=== PATIENT | female | born 2000 | race Caucasian/White ===

== ENCOUNTER 2018-11-01 18:52 | Emergency (ER) | payer OTHER, SELFPAY ==
[2018-11-01 19:00] VITALS: BP 117/76; PULSE 103; RESP 14; TEMP 36.8; O2SAT 100; BMI 25.0
[2018-11-01 19:38] LABS: Urine Amphetamines Negative (Negative); Urine Barbiturates Negative (Negative); Urine Benzodiazepines Negative (Negative); Urine Cocaine Negative (Negative); Urine MDMA Negative (Negative); Urine Methadone Negative (Negative); Urine Methamphetamines Negative (Negative); Urine Morphine/Opi cutoff 2000 Negative (Negative); Urine Oxycodone Negative (Negative); Urine Phencyclidine Negative (Negative); Urine Tetrahydrocannabinol Negative (Negative); Urine Tricyclic Antidepressant Negative (Negative)
[2018-11-01 19:47] LABS: Add Manual Diff / Slide Review NO; Basophils Absolute Auto 0 /uL (0-100); Basophils Percent Auto 0.5 % (0-2); Eosinophils Absolute Auto 200 /uL (0-450); Eosinophils Percent Auto 2.6 % (2-4); Hematocrit 39.4 % (36-46); Hemoglobin 13.7 g/dL (12.0-16.0); Lymphocytes Absolute Auto 2200 /uL (1100-4500); Lymphocytes Percent Auto 26.4 % (25-40); Mean Corpuscular HGB Conc 34.9 % (30-36); Mean Corpuscular Hemoglobin 31.1 PG (26-34); Mean Corpuscular Volume 89.2 fL (80-100); Monocytes Absolute Auto 800 /uL (0-900); Monocytes Percent Auto 9.7 % (3-14); Neutrophils Absolute Auto 5100 /uL (1500-7000); Neutrophils Percent Auto 60.8 % (50-75); Platelet Count 266 X10^3/uL (150-400); Red Blood Cell Count 4.41 X10^6/uL (4.0-5.2); Red Cell Distribution Width 12.7 % (11.6-14.8); White Blood Cell Count 8.4 X10^3/uL (4.5-11.0)
[2018-11-01] MEDS: LORazepam 0.5 MG TABLET 1 MG PO ×2 (19:49→22:52)
[2018-11-01 20:03] LABS: Alanine Aminotransferase 11 IU/L (9-52); Albumin 4.6 g/dL (3.5-5.0); Albumin Globulin Ratio 1.5 (1.0-2.8); Alkaline Phosphatase 53 U/L (38-126); Aspartate Aminotransferase 19 IU/L (14-36); Bilirubin Total 0.2 mg/dL (0.2-1.3); Blood Urea Nitrogen 16 mg/dL (7-17); Calcium 9.3 mg/dL (8.4-10.2); Carbon Dioxide 26 mmol/L (22-32); Chloride 105 mmol/L (98-107); Estimated Glomerular Filt Rate > 60.0 mL/min (>60); Ethanol (ETOH) < 10 mg/dL; Globulin 3.1 g/dL (1.7-4.1); Glucose 94 mg/dL (70-100); HEMOLYSIS < 15 (0-50); Potassium 3.9 mmol/L (3.4-5.1); Sodium 142 mmol/L (137-145); Total Protein 7.7 g/dL (6.3-8.2)
[2018-11-01 20:21] VITALS: BP 120/74; PULSE 84; RESP 16; O2SAT 97
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
[2018-11-01 20:58] LABS: Thyroid Stimulating Hormone 2.43 uIU/mL (0.47-4.68)
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
[2018-11-01 21:21] LABS: Acetaminophen < 10 ug/mL (10-30); Salicylate < 1.0 mg/dL (<20)
[2018-11-01 22:11] VITALS: BP 111/76; PULSE 100; RESP 16; TEMP 36.3; O2SAT 98
== END 2018-11-01 22:55 | disposition short-term general hospital (02) ==
PROVIDERS: Emergency Provider Emergency Medicine
DX: R45.851 Suicidal ideations (principal)
CPT/HCPCS: 36415; 80053; 80305; 80320; 80329; 81003; 81025; 84443; 85025; 99283; G0480

== ENCOUNTER 2022-03-26 23:00 | Emergency (ER) | payer OTHER, SELFPAY ==
[2022-03-26 23:04] VITALS: BP 104/61; PULSE 93; RESP 20; TEMP 36.6; O2SAT 100; BMI 29.9
--- NOTE | 2022-03-26 23:13 | DI.RAD.S_ITS ---
PROCEDURE: XR WRIST RT MIN 3V INDICATIONS: fall, wrist injury, wrist pain TECHNIQUE: 4 views of the wrist were acquired. COMPARISON: None. FINDINGS: Bones: No fractures or dislocations. No suspicious bony lesions. Scaphoid view: The scaphoid appears intact. Soft tissues: No suspicious soft tissue calcifications. IMPRESSION: 1. No fracture or dislocation. Dictated by: Nima To M.D. on 03/27/2022 at 0:44 Approved by: Nima To M.D. on 03/27/2022 at 0:45
[2022-03-27 02:30] VITALS: BP 116/73; PULSE 85; RESP 18
--- NOTE | 2022-03-27 03:35 | ED.UPPEXIN ---
HPI - Extremity Injury (Upper) General Chief Complaint: Extremity Injury, Upper Stated Complaint: nick josue in right wrist Time Seen by Provider: 03/27/22 03:30 Source: patient Mode of arrival: Ambulatory Limitations: no limitations History of Present Illness HPI narrative: This is a 21-year-old female with complaint of pain in her right hand/wrist. Patient states she is playing with her dog she did fall over a couple time she did not notice anything but afterwards had some pain in the wrist 4th 5th metacarpal region. Patient states she twisted her hand felt a click and had persistent pain. Particularly with flexion. Patient states she felt something similar when she was 8 she had an injury and had a ligamentous injury. She states she wore a splint, took Tylenol and ibuprofen and it healed on its own without interventions otherwise. Patient denies any other injuries. She is not taken anything for pain. She states maybe a little bit of tingling but no weakness. She has not appreciated decreased range of motion but does have pain with some movements. She is not sure if she fell down but she thinks she might have she was playing with 2 large dogs for quite a while. Patient denies any daily medications, no prior surgeries. No known drug allergies. She defers anything for pain today. [facility] care is through [facility]. Related Data Home Medications Medication Instructions Recorded Confirmed No Known Home Medications 11/01/18 11/01/18 Allergies Allergy/AdvReac Type Severity Reaction Status Date / Time No Known Drug Allergies Allergy Verified 11/01/18 19:14 Review of Systems Review of Systems ROS Unobtainable: All systems reviewed & are unremarkable except as noted in HPI and below Patient History Social History Smoking Status: Current every day smoker Smoking Status: Current every day smoker tobacco type: vaping alcohol intake frequency: holidays/special occasions only Substance Use Type: does not use Exam Narrative Exam Narrative: GENERAL: Alert and oriented x three, female in mild distress HEENT: Head normocephalic, atraumatic, EOMI, pupils reactive, face symmetric, moist mucous membranes NECK: Supple, full range of motion EXTREMITIES: Normal range of motion, no clubbing or edema. Neurovascularly intact. Patient does not have any bony tenderness. Does have some increased discomfort with flexion but has full range of motion. No warmth, no erythema, no swelling, no ecchymosis. Patient nontender over joints of the wrist and hand. Cap refill less than 2 seconds in all 5 fingers. 2+ radial pulse. Full range of motion of all 5 fingers without any weakness. Neurovascularly intact. NEUROLOGICAL: Cranial nerves II through XII grossly intact. Moving all extremities SKIN: Warm, dry, no petechiae, no rashes or lesions. Initial Vital Signs Initial Vital Signs: Vital Signs Temperature 97.9 F 03/26/22 23:04 Pulse Rate 93 H 03/26/22 23:04 Respiratory Rate 20 03/26/22 23:04 Blood Pressure 104/61 03/26/22 23:04 Pulse Oximetry 100 03/26/22 23:04 Oxygen Delivery Method 03/26/22 23:04 Course Orders Ordered: ED Orders 03/26/22 23:13 XR wrist RT min 3V Stat Vital Signs Vital signs: Vital Signs - 8 hr 03/26/22 23:04 03/27/22 02:30 03/27/22 03:52 Temperature 97.9 F Pulse Rate 93 H 85 82 Respiratory Rate 20 18 18 Blood Pressure 104/61 116/73 111/72 Pulse Oximetry 100 99 Oxygen Delivery Method Room Air Room Air MDM - Extremity Injury (Upper) Imaging Data Extremity x-ray #1: Radiologist's Impression: Close Wrist X-Ray (Signed) Nima To - 03/26/22 [address]?[place] [address] XRay Report Signed Patient: Dfane Brooks MR#: [id number] : 2000 Acct:[id number] Age/Sex: 21 / F Date of Service: 03/26/22 Loc: ED Accession Number: [id number] ?? Procedure: XR wrist RT min 3V Ordering Provider: Meredith Bruno D.O. PROCEDURE:? XR WRIST RT MIN 3V ? INDICATIONS: fall, wrist injury, wrist pain ? TECHNIQUE:? 4 views of the wrist were acquired.? ? COMPARISON:? None. ? FINDINGS:? ? Bones:? No fractures or dislocations.? No suspicious bony lesions.? ? Scaphoid view:? The scaphoid appears intact. ? Soft tissues:? No suspicious soft tissue calcifications.? ? IMPRESSION:? ? 1. No fracture or dislocation.? ? ? Dictated by: Nima To M.D. on 03/27/2022 at 0:44 ? ? Approved by: Nima To M.D. on 03/27/2022 at 0:45?? MDM Narrative Medical decision making narrative: 21-year-old female with pain in her right hand/wrist. Patient has increased pain with movement, no other concerning changes on exam. Splint,RICE and follow-up as needed. Discharge Plan Departure Patient Disposition: Home Clinical Impression: Sprain and strain of hand Activity Restrictions/Additional Instructions: Follow-up with your physician in the next 7-10 days if symptoms are persisting. If symptoms totally resolve you do not have to follow-up. You may take Tylenol up to a 1000 mg every 6 hours and/or ibuprofen up to 600 mg every 6 hours as needed pain. Splint Care: Keep splint clean and dry. Elevated affected body part to decrease swelling. OK to use ice pack on the affected body part. Use for 15-20 minutes each time, for 5-6x per day. If you develop worsening pain, numbness, tingling, discoloration of the affected body part, loosen the splint by loosening the LESA wrap, and either see your doctor for an urgent re-assessment, or return to the Emergency Department. Return to the Emergency Department for any new or worsening symptoms. Prescriptions: No Action No Known Home Medications Referrals: ProviderNicole [Primary Care Provider] - Stand Alone Forms: Work Release Note Visit Report Forms: Patient Portal/API
[2022-03-27 03:52] VITALS: BP 111/72; PULSE 82; RESP 18; O2SAT 99
== END 2022-03-27 03:53 | disposition home or self-care (01) ==
PROVIDERS: Emergency Provider Emergency Medicine
DX: S63.91XA Sprain of unspecified part of right wrist and hand, initial encounter (principal); S66.911A Strain of unspecified muscle, fascia and tendon at wrist and hand level, right hand, initial encounter; W19.XXXA Unspecified fall, initial encounter
CPT/HCPCS: 73110; 99283

== ENCOUNTER → 2024-02-02 14:26 | Outpatient (CLI) | payer OTHER, SELFPAY ==
--- NOTE | 2024-02-02 | DI.US.S_ITS ---
PROCEDURE: US OB >= 14 WEEKS FETUS INDICATIONS: 20 week anatomy scan OUTSIDE/PRIOR DATING DATA: Last menstrual period (LMP): 09/11/2023. LMP-based estimated date of delivery (EDWIN): 06/17/2024. TECHNIQUE: Real-time scanning was performed of the fetus, with image documentation and biometric measurements. Endovaginal scanning: Not performed COMPARISON: None. FINDINGS: General: A single living intrauterine gestation is present. Presentation: Vertex Placenta: Placental position is posterior , without previa. Amniotic fluid index: 15.1 cm, normal range is 5-24 cm. Single deepest vertical pocket is 5.6 cm. heart rate: 160 beats per minute. Maternal cervical canal: 3.0 cm long. Normal lower limit is 2.5 cm. biometrics: Biparietal diameter: 4.8 cm, 20 weeks 4 days Head circumference: 17.6 cm, 20 weeks 1 day Abdominal circumference: 14.4 cm, 19 weeks 5 days Femur length: 3.3 cm, 20 weeks 2 days Clinically estimated gestational age: 20 weeks 4 days Composite gestational age from present scan: 20 weeks 1 day Estimated weight and percentile: 330 g, 21st percentile Anatomic survey: Neuro: Ventricles are non-dilated at less than 10 mm. Cisterna magna is normal at 3-11 mm. Cerebellum is normal in size and morphology. Nuchal skin fold: Normal at less than 6 mm between 14-21 weeks gestational age. Face: Nose and lips, facial profile are normal. Spine: No evidence for spina bifida. Heart: 4-chambered heart is present, with normal ventricular outflow tracts. Diaphragm: Diaphragm is intact. Stomach: Left-sided stomach is present. Kidneys: No hydronephrosis. Normal is less than 5 mm in 2nd trimester, less than 7 mm in 3rd trimester. Cord: 3-vessel cord which insert 1.7 cm from the placental margin. Bladder: Normal in size. Extremities: All 4 extremities identified. IMPRESSION: 1. Single live intrauterine consistent with 20 weeks and 1 day. 2. Placental cord insertion 1.7 cm from the placental margin. Consider follow-up ultrasound. 3. Otherwise, normal anatomic survey. We strive to produce accurate, complete, and clear reports of imaging services. To assist us in improving patient care, this report was composed using standard report templates and voice recognition software. Therefore, it may contain abnormal punctuation, insertions and/or omissions. Occasional wrong-word or sound-alike substitutions may occur. Though we review the report and make efforts to correct it, we do recommend that the report be read carefully in proper context to recognize any text inaccuracies. Dictated by: Jason Barfield M.D. on 02/02/2024 at 18:22 Approved by: Jason Barfield M.D. on 02/02/2024 at 18:25
== END ==
PROVIDERS: Referring Provider Advanced Practice Midwife; Visit Provider Advanced Practice Midwife
DX: Z34.02 Encounter for supervision of normal first pregnancy, second trimester (principal); Z3A.20 20 weeks gestation of pregnancy
CPT/HCPCS: 76811